=== PATIENT | male | born 1980 | race Caucasian/White ===

== ENCOUNTER 2022-04-01 09:22 | Outpatient (CLI) | payer OTHER, SELFPAY ==
[2022-04-01 17:33] LABS: Albumin* 4.5 g/dL (3.3-5.0)
[2022-04-01 17:34] LABS: Chloride* 103 mmol/L (96-114); Potassium* 5.3 mmol/L (3.6-5.1); Sodium* 139 mmol/L (135-149)
[2022-04-01 17:36] LABS: Aspartate Amino Transferase* 38 U/L (12-35); Bilirubin Total* 0.7 mg/dL (0.1-1.5); Blood Urea Nitrogen* 22 mg/dL (5-24); Carbon Dioxide* 28 mmol/L (20-32); Cholesterol* 206 mg/dL (90-199); Creatinine* 1.1 mg/dL (0.5-1.5); Estimated Glomerular Filt Rate 86 ml/min; Total Protein* 7.5 g/dL (6.0-8.3)
[2022-04-01 17:37] LABS: Alanine Aminotransferase* 26 U/L (4-50); Alkaline Phosphatase* 54 U/L (40-150); Calcium* 9.7 mg/dL (8.4-10.6); Glucose* 104 mg/dL (60-115); HDL Cholesterol* 69 mg/dL (>=40); LDL Cholesterol Calculated 117 mg/dL (<100); Triglycerides* 102 mg/dL (40-149)
== END 2022-04-01 09:23 | disposition home or self-care (01) ==
PROVIDERS: PCP Physician Assistant Medical; Visit Provider Physician Assistant Medical
DX: Z00.00 Encounter for general adult medical examination without abnormal findings (principal); F41.9 Anxiety disorder, unspecified; L30.9 Dermatitis, unspecified; Z13.6 Encounter for screening for cardiovascular disorders
CPT/HCPCS: 80053; 80061

== ENCOUNTER 2023-09-16 10:05 | Outpatient (CLI) | payer BC, SELFPAY | END 2023-09-16 10:06 | disposition home or self-care (01) | PROVIDERS: PCP Physician Assistant Medical; Visit Provider Physician Assistant Medical | DX: Z00.00 Encounter for general adult medical examination without abnormal findings (principal) | CPT/HCPCS: 80053; 80061 ==